=== PATIENT | male | born 1990 | race Caucasian/White ===

== ENCOUNTER 2021-01-19 19:11 | Emergency (ER) | payer MEDICAID, OTHER ==
--- NOTE | 2021-01-19 19:26 | ERPHSYRPT ---
- History of Present Illness Time Seen by Provider: 01/19/21 19:26 Source: patient Exam Limitations: no limitations Physician History: This is a 30-year-old white male who was working out at home and denies crawling on carpet or surface and felt as though he was crawling on the ground although he was not. Within the next 24 to 48 hours he had redness and a "pimple" on the anterior left knee. He popped it and there is some clear fluid present. However in the next couple days he he had more redness and swelling and therefore he came into the emergency room for evaluation. He has had no fevers. He is not diabetic. Timing/Duration: day(s) (Few days) Quality: burning, painful Severity: mild Location: extremities (Left anterior knee) Possible Causes: insect bite (Possible) Associated Symptoms: blisters, change in skin texture Allergies/Adverse Reactions: No Known Drug Allergies Allergy (Unverified 01/19/21 20:43) Travel Risk - International Travel Have you traveled outside of the country in past 3 weeks: No - Coronavirus Screening Are you exhibiting any of the following symptoms?: No Close contact with a COVID-19 positive Pt in past 14-21 Days: No - Review of Systems Constitutional: No Symptoms Eyes: No Symptoms Ears, Nose, & Throat: No Symptoms Respiratory: No Symptoms Cardiac: No Symptoms Abdominal/Gastrointestinal: No Symptoms Genitourinary Symptoms: No Symptoms Musculoskeletal: No Symptoms Skin: Cellulitis (Left anterior knee) Neurological: No Symptoms Psychological: No Symptoms Endocrine: No Symptoms Hematologic/Lymphatic: No Symptoms Immunological/Allergic: No Symptoms All Other Systems: Reviewed and Negative - Past Medical History Pertinent Past Medical History: Yes - Past Surgical History Past Surgical History: Yes - Nursing Vital Signs Nursing Vital Signs: Initial Vital Signs Temperature 99.1 F 01/19/21 20:35 Pulse Rate 110 H 01/19/21 20:35 Respiratory Rate 20 01/19/21 20:35 Blood Pressure 151/103 01/19/21 20:35 O2 Sat by Pulse Oximetry 98 01/19/21 20:35 Pain Scale Pain Intensity 6 - Physical Exam General Appearance: no apparent distress, alert, anxiety Eye Exam: PERRL/EOMI Ears, Nose, Throat Exam: normal ENT inspection, moist mucous membranes Neck Exam: normal inspection, non-tender, supple, full range of motion Respiratory Exam: normal breath sounds, lungs clear, airway intact, No chest tenderness, No respiratory distress Cardiovascular Exam: tachycardia Gastrointestinal/Abdomen Exam: No tenderness Rectal Exam: not done Back Exam: normal inspection, normal range of motion, No CVA tenderness, No vertebral tenderness Extremity Exam: normal range of motion, pelvis stable, tenderness (And swelling with some cellulitis to anterior left knee. There is a central pinpoint eschar. 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 See above left anterior knee) Lymphatic Exam: No adenopathy SpO2 Interpretation: normal O2 Delivery: Room Air - Course Nursing assessment & vital signs reviewed: Yes Ordered Tests: Medication Summary Generic Name Dose Route Start Last Admin Trade Name Freq PRN Reason Stop Dose Admin Ceftriaxone Sodium 1,000 mg 01/19/21 21:14 Rocephin 1000 Mg Inj IM 01/19/21 21:15 STAT ONE Trimethoprim/Sulfamethoxazole 1 tab 01/19/21 21:14 Bactrim Ds Tablet PO 01/19/21 21:15 STAT ONE - Progress Progress: improved, pain not gone completely, re-examined Counseled pt/family regarding: diagnosis, need for follow-up - Departure Departure Disposition: Home Clinical Impression: Cellulitis of left knee Condition: Stable Critical Care Time: No Referrals: NOHEMI TORO [Primary Care Provider] - Additional Instructions: Scrub site left anterior knee daily with soap and water. Avoid ointments lotions and creams. Take your medication as prescribed. Return to the emergency department in 24 hours for reevaluation. Return sooner to the [facility] department if your symptoms worsen. Prescriptions: Smz/Tmp Ds Tablet [Bactrim Ds Tablet] 1 udtab PO BID #14 tablet
[2021-01-19] MEDS ORDERED: BACTRIM DS TABLET PO ONE ×2 (21:14→21:36)
[2021-01-19] MEDS ORDERED: Rocephin 1000 MG INJ IM ONE (21:14)
[2021-01-19 21:34] VITALS: BP 140/95; PULSE 101; O2SAT 96
[2021-01-19] MEDS ORDERED: Adacel Vial IM ONE ×2 (21:34→21:36)
[2021-01-19] MEDS ORDERED: XYLOCAINE 1% HCL 20 ML MDV ONE (21:36)
[2021-01-19] MEDS ORDERED: Rocephin 1000 MG INJ ONE (21:36)
== END 2021-01-19 21:55 | disposition home or self-care (01) ==
LOC: ED 19:11
DX: L03.116 Cellulitis of left lower limb (principal)
CPT/HCPCS: 87070; 87077; 87186; 90471; 90715; 96372; 99284; J0696; A9270-GY